=== PATIENT | male | born 1970 | race Caucasian/White ===

== ENCOUNTER 2018-07-12 21:35 | Emergency (ER) | payer OTHER ==
[~2018-07-12] VITALS: Ht 167.6 cm; Wt 88.5 kg
[2018-07-12] MEDS ORDERED: CIPROFLOXIN HC2.5 M1 OPHTHALMIC (22:19)
[2018-07-12 22:34] VITALS: BP 114/81
== END 2018-07-12 22:35 | disposition home or self-care (01) ==
LOC: M.ERS 21:35
DX: S05.01XA Injury of conjunctiva and corneal abrasion without foreign body, right eye, initial encounter (principal); X58.XXXA Exposure to other specified factors, initial encounter; Y93.89 Activity, other specified; Y92.89 Other specified places as the place of occurrence of the external cause; Y99.8 Other external cause status

== ENCOUNTER 2018-09-28 16:22 | Emergency (ER) | payer OTHER ==
[~2018-09-28] VITALS: Ht 170.2 cm; Wt 86.2 kg
[~2018-09-28 16:22] MED LIST: CIPROFLOXIN HC2.5 M1 OPHTHALMIC
[2018-09-28] MEDS ORDERED: LEVAQUIN 500 M500 M2 PO (18:04)
[2018-09-28 18:27] VITALS: BP 130/84
== END 2018-09-28 18:35 | disposition home or self-care (01) ==
LOC: M.ERS 16:22
DX: N50.812 Left testicular pain (principal)

== ENCOUNTER 2018-10-11 14:08 | Emergency (ER) | payer OTHER ==
[~2018-10-11] VITALS: Ht 172.7 cm; Wt 83.9 kg
[~2018-10-11 14:08] MED LIST changes: +LEVAQUIN 500 M500 M2 PO
[2018-10-11] MEDS ORDERED: DOXYCYCLINE 10100 MG PO (14:18)
[2018-10-11] MEDS ORDERED: IBUPROFEN 600600 M1 PO (14:19)
[2018-10-11] MEDS ORDERED: NORCO 5-325 TA1 EAC1 PO (14:48)
[2018-10-11 15:54] VITALS: BP 148/100
[2018-10-12] MEDS ORDERED: PREDNISONE50 MG PO (20:34)
[2018-10-12] MEDS ORDERED: PROAIR HFA8.5 GM INH (20:34)
== END 2018-10-11 15:54 | disposition home or self-care (01) ==
LOC: M.ERS 14:08
DX: M25.512 Pain in left shoulder (principal)

== ENCOUNTER 2018-10-12 18:34 | Emergency (ER) | payer OTHER ==
[~2018-10-12] VITALS: Ht 172.7 cm; Wt 83.9 kg
[~2018-10-12 18:34] MED LIST changes: +DOXYCYCLINE 10100 MG PO; +IBUPROFEN 600600 M1 PO; +NORCO 5-325 TA1 EAC1 PO
[2018-10-12 19:47] LABS: ABSOLUTE BASOPHILS 0.1 thou/uL (0.0-0.2); ABSOLUTE EOSINOPHILS 0.1 thou/uL (0.0-0.7); ABSOLUTE LYMPHOCYTES 1.8 thou/uL (0.8-5.3); ABSOLUTE MONOCYTES 0.6 thou/uL (0.0-1.2); ABSOLUTE NEUTROPHILS 3.7 thou/uL (1.6-8.1); BASOPHILS 0.9 %; EOSINOPHILS 2.1 %; HEMATOCRIT 43.8 % (42.0-52.0); HEMOGLOBIN 15.3 gm/dL (14.0-18.0); MCH 30.7 pg (26.0-34.0); MCHC 34.9 g/dL (28.0-37.0); MCV 88.1 fL (80.0-100.0); MONOCYTES 10.2 %; MPV 8.1 fl. (7.2-11.1); NUCLEATED RBCS 0 /100WBC; PLATELET COUNT* 298 thou/uL (150-400); POLYS 57.8 %; RBC 4.97 mil/uL (4.50-6.00); RDW-CV 12.3 % (10.5-14.5); WBC 6.3 thou/uL (4.0-11.0)
[2018-10-12 19:54] LABS: ANION GAP 9 mmol/L (7-16); BUN 10 mg/dL (7-18); CALCIUM 9.1 mg/dL (8.5-10.1); CHLORIDE 104 mmol/L (98-107); CO2 28 mmol/L (21-32); GLUCOSE 104 mg/dL (70-99); INR 1.1; POTASSIUM 3.8 mmol/L (3.5-5.1); PROTIME 11.4 Seconds (9.20-11.50); SODIUM 141 mmol/L (136-145)
[2018-10-12 20:06] LABS: ALBUMIN 3.9 g/dL (3.4-5.0); ALKALINE PHOSPHATASE 91 U/L (46-116); NT-PRO BRAIN NAT PEPTIDE 23 pg/mL (<300); SGOT 21 U/L (15-37); SGPT 39 U/L (30-65); TOTAL BILIRUBIN 0.4 mg/dL (<0.1-1.0); TOTAL PROTEIN 7.1 g/dL (6.4-8.2); TROPONIN-I LEVEL <0.06 ng/mL (<0.06)
[2018-10-12] MEDS ORDERED: PROAIR HFA8.5 GM INH (20:34)
[2018-10-12] MEDS ORDERED: PREDNISONE50 MG PO (20:34)
[2018-10-12 20:44] VITALS: BP 141/88
== END 2018-10-12 20:45 | disposition home or self-care (01) ==
LOC: M.ERS 18:34
PROVIDERS: Emergency Medicine
DX: R05 Cough (principal)

== ENCOUNTER 2018-10-19 02:28 | Emergency (ER) | payer OTHER ==
[~2018-10-19] VITALS: Ht 167.6 cm; Wt 83.9 kg
[~2018-10-19 02:28] MED LIST changes: +PREDNISONE50 MG PO; +PROAIR HFA8.5 GM INH
[2018-10-19] MEDS ORDERED: FLEXERIL PO (04:49)
[2018-10-19 05:00] VITALS: BP 146/94
== END 2018-10-19 05:05 | disposition home or self-care (01) ==
LOC: M.ERS 02:28
DX: M48.02 Spinal stenosis, cervical region (principal)

== ENCOUNTER 2018-10-21 20:16 | Emergency (ER) | payer OTHER ==
[~2018-10-21] VITALS: Ht 172.7 cm; Wt 74.8 kg
[~2018-10-21 20:16] MED LIST changes: +FLEXERIL PO
[2018-10-21 20:21] VITALS: BP 147/101
[2018-10-21] MEDS ORDERED: LYRICA 50 MG50 MG PO (20:41)
== END 2018-10-21 20:48 | disposition home or self-care (01) ==
LOC: M.ERS 20:16
DX: M54.12 Radiculopathy, cervical region (principal); Z98.890 Other specified postprocedural states

== ENCOUNTER 2019-07-23 14:11 | Emergency (ER) | payer OTHER ==
[~2019-07-23] VITALS: Ht 175.3 cm; Wt 71.7 kg
[~2019-07-23 14:11] MED LIST changes: +LYRICA 50 MG50 MG PO
[2019-07-23 15:01] LABS: ABSOLUTE BASOPHILS 0.1 thou/uL (0.0-0.2); ABSOLUTE EOSINOPHILS 0.3 thou/uL (0.0-0.7); ABSOLUTE LYMPHOCYTES 2.1 thou/uL (0.8-5.3); ABSOLUTE MONOCYTES 0.5 thou/uL (0.0-1.2); ABSOLUTE NEUTROPHILS 2.9 thou/uL (1.6-8.1); BASOPHILS 1.1 %; EOSINOPHILS 5.1 %; HEMATOCRIT 43.2 % (42.0-52.0); HEMOGLOBIN 15.3 gm/dL (14.0-18.0); LYMPHOCYTES 36.1 %; MCH 31.8 pg (26.0-34.0); MCHC 35.5 g/dL (28.0-37.0); MCV 89.5 fL (80.0-100.0); MONOCYTES 8.6 %; MPV 9.2 fl. (7.2-11.1); NUCLEATED RBCS 0 /100WBC; PLATELET COUNT* 208 thou/uL (150-400); POLYS 49.1 %; RBC 4.83 mil/uL (4.50-6.00); RDW-CV 13.3 % (10.5-14.5); WBC 5.9 thou/uL (4.0-11.0)
[2019-07-23 15:08] LABS: CALCIUM 8.6 mg/dL (8.5-10.1); POTASSIUM 3.8 mmol/L (3.5-5.1)
[2019-07-23 15:13] LABS: ALBUMIN 3.9 g/dL (3.4-5.0); TOTAL BILIRUBIN 0.8 mg/dL (<0.1-1.0)
[2019-07-23] MEDS ORDERED: ZANAFLEX4 MG PO (17:09)
[2019-07-23] MEDS ORDERED: NORCO 5-325 TA1 EAC1 PO (17:09)
[2019-07-23] MEDS ORDERED: NAPROSYN500 MG PO (17:09)
[2019-07-23 17:34] VITALS: BP 122/77
== END 2019-07-23 17:35 | disposition home or self-care (01) ==
LOC: M.ERS 14:11
PROVIDERS: Nurse Practitioner Family
DX: M54.2 Cervicalgia (principal); I10 Essential (primary) hypertension

== ENCOUNTER 2019-08-28 19:30 | Inpatient (IN) | payer OTHER ==
[~2019-08-28] VITALS: Ht 167.6 cm; Wt 69.6 kg
[~2019-08-28 19:30] MED LIST changes: +NAPROSYN500 MG PO; +ZANAFLEX4 MG PO
[2019-08-28 19:36] VITALS: BP 157/95
[2019-08-28] MEDS ORDERED: NEURONTIN100 MG PO (19:40)
[2019-08-28 19:52] LABS: ABSOLUTE BASOPHILS 0.1 thou/uL (0.0-0.2); ABSOLUTE EOSINOPHILS 0.3 thou/uL (0.0-0.7); ABSOLUTE LYMPHOCYTES 1.6 thou/uL (0.8-5.3); ABSOLUTE MONOCYTES 0.5 thou/uL (0.0-1.2); ABSOLUTE NEUTROPHILS 4.3 thou/uL (1.6-8.1); BASOPHILS 0.8 %; EOSINOPHILS 4.2 %; HEMATOCRIT 45.5 % (42.0-52.0); LYMPHOCYTES 24.1 %; MCH 31.7 pg (26.0-34.0); MCHC 35.1 g/dL (28.0-37.0); MCV 90.1 fL (80.0-100.0); MONOCYTES 8.1 %; MPV 8.3 fl. (7.2-11.1); NUCLEATED RBCS 0 /100WBC; PLATELET COUNT* 255 thou/uL (150-400); POLYS 62.8 %; RBC 5.05 mil/uL (4.50-6.00); RDW-CV 12.7 % (10.5-14.5); WBC 6.8 thou/uL (4.0-11.0)
[2019-08-28 20:01] LABS: CALCIUM 8.5 mg/dL (8.5-10.1); POTASSIUM 3.8 mmol/L (3.5-5.1); PROTIME 10.3 Seconds (9.20-11.50)
[2019-08-28 20:12] LABS: ALBUMIN 3.6 g/dL (3.4-5.0); TOTAL BILIRUBIN 0.8 mg/dL (<0.1-1.0); TOTAL PROTEIN 7.1 g/dL (6.4-8.2)
[2019-08-28 23:29] VITALS: BP 128/91
[2019-08-28 23:40] VITALS: BP 127/94
[2019-08-29 04:00] VITALS: BP 124/87
[2019-08-29 08:38] VITALS: BP 120/91
--- NOTE | 2019-08-29 10:23 | EKG ---
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 : 1970 Requested By: Mary Ann Camara Order Number: [id number] MD: Brian Stacy Measurements Intervals [place] Rate: 85 P: -2 TN: 134 QRS: 20 QRSD: 102 T: 24 QT: 372 QTc: 443 Interpretive Statements Sinus rhythm Borderline T abnormalities, inferior leads Baseline wander in lead(s) III,aVL,aVF No previous ECG available for comparison Electronically Signed On 08-29-2019 10:22:14 CDT by Brian Stacy [email or web address] <ELECTRONICALLY SIGNED> By: Mary Stacy MD, [facility] 08/29/192 33 33 Mary Stacy MD, [facility] /EPI
[2019-08-29 11:47] LABS: CHOLESTEROL 270 mg/dL (<200); HDL CHOLESTEROL 73 mg/dL (>40); LDL CHOLESTEROL 183 mg/dL (<100); TC:HDL 3.7 Ratio (Not establshd); TRIGLYCERIDE 74 mg/dL (<150); VLDL 15 mg/dL (<40)
[2019-08-29 12:14] LABS: SERUM ASSESSMENT Clear
[2019-08-29 12:20] VITALS: BP 116/90
[2019-08-29 12:47] LABS: CALCIUM 9.1 mg/dL (8.5-10.1); CREATININE 0.9 mg/dL (0.6-1.3)
[2019-08-29 16:03] VITALS: BP 107/77
[2019-08-29 20:00] VITALS: BP 127/87
[2019-08-30] VITALS: BP 118/91
[2019-08-30 04:00] VITALS: BP 121/93
[2019-08-30 05:56] LABS: HEMATOCRIT 40.2 % (42.0-52.0); MCH 31.6 pg (26.0-34.0); MCHC 34.9 g/dL (28.0-37.0); MCV 90.7 fL (80.0-100.0); MPV 8.4 fl. (7.2-11.1); RBC 4.43 mil/uL (4.50-6.00); RDW-CV 12.9 % (10.5-14.5); WBC 6.7 thou/uL (4.0-11.0)
[2019-08-30 06:14] LABS: ANION GAP 6 mmol/L (7-16); BUN 9 mg/dL (7-18); CALCIUM 8.2 mg/dL (8.5-10.1); CHLORIDE 102 mmol/L (98-107); CO2 30 mmol/L (21-32); CREATININE 0.9 mg/dL (0.6-1.3); GLUCOSE 115 mg/dL (70-99); MAGNESIUM 2.2 mg/dL (1.8-2.4); POTASSIUM 4.3 mmol/L (3.5-5.1); SODIUM 138 mmol/L (136-145); TROPONIN-I LEVEL <0.06 ng/mL (<0.06)
[2019-08-30 08:00] VITALS: BP 117/91
--- NOTE | 2019-08-30 11:19 | EKG ---
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
[2019-08-30 12:00] VITALS: BP 132/85
--- NOTE | 2019-08-30 14:18 | 2DMMODE ---
[place] [address] 2 D/M-MODE ECHOCARDIOGRAM Name: RADHAPABLO JR Room: [address] IN M.R.#: [id number] Admission: 08/28/19 Attend Phys: Laurie saldivar Sa Discharge: Date of : 72 Date of Service: 08/30/19 1417 Report #: [id number] THIS REPORT FOR: cc: FAM - No family physician/PCP FAM - No family physician/PCP Aden Ceballos MD [facility] ~ APPROVED REPORT Study performed: 08/30/2019 10:53:29 EXAM: Comprehensive 2D, Doppler, and color-flow Echocardiogram Patient Location: In-Patient BSA: 1.75 HR: 114 bpm BP: 117/91 mmHg Other Information Study Quality: Fair Technically limited study due to inability to position patient. Indications Chest Pain Pleural Effusion 2D Dimensions IVSd: 10.41 (7-11mm) LVOT Diam: 21.85 (18-24mm) LVDd: 41.80 mm PWd: 10.89 (7-11mm) Ascending Ao: 29.22 (22-36mm) LVDs: 33.34 (25-40mm) Aortic Root: 33.95 mm Volumes Left Atrial Volume (Systole) LA ESV Index: 15.10 mL/m2 Aortic Valve AoV Peak Edwin.: 0.96 m/s AO Peak Gr.: 3.71 mmHg LVOT Max P.37 mmHg AO Mean Gr.: 2.38 mmHg LVOT Mean P.42 mmHg LVOT Max V: 0.77 m/s AO V2 VTI: 15.31 cm LVOT Mean V: 0.56 m/s CHINO (VTI): 3.34 cm2 LVOT V1 VTI: 13.65 [place] [address] 2 D/M-MODE ECHOCARDIOGRAM Name: PABLO GARCIA JR Room: [address] IN ..#: [id number] Admission: 08/28/19 Attend Phys: Laurie saldivar Sa Discharge: Date of : 72 Date of Service: 08/30/19 1417 Report #: [id number] Mitral Valve E/A Ratio: 0.68 MV Decel. Time: 215.48 ms MV E Max Edwin.: 0.44 m/s MV PHT: 62.49 ms MVA (PHT): 3.52 cm2 TDI E/Lateral E': 4.89 E/Medial E': 3.14 Medial E' Edwin.: 0.14 m/s Lateral E' Edwin.: 0.09 m/s Pulmonary Valve PV Peak Edwin.: 0.81 m/s PV Peak Gr.: 2.60 mmHg Left Ventricle The left ventricle is normal size. There is normal LV segmental wall motion. There is normal left ventricular wall thickness. Left ventricular systolic function is borderline. LVEF is 50-55%. Grade I - abnormal relaxation pattern. Right Ventricle The right ventricle is normal size. The right ventricular systolic function is normal. Atria The left atrium size is normal. The right atrium size is normal. Aortic Valve The aortic valve is normal in structure. No aortic regurgitation is present. There is no aortic valvular stenosis. Mitral Valve The mitral valve is normal in structure. There is no mitral valve regurgitation noted. No evidence of mitral valve stenosis. Tricuspid Valve The tricuspid valve is normal in structure. There is no tricuspid valve regurgitation noted. Pulmonic Valve The pulmonary valve is normal in structure. There is no pulmonic valv[place] [address] 2 D/M-MODE ECHOCARDIOGRAM Name: PABLO GARCIA JR Room: [address] IN [facility]#: [id number] Admission: 08/28/19 Attend Phys: Laurie saldivar Sa Discharge: Date of : 72 Date of Service: 08/30/19 1417 Report #: [id number] Great Vessels The aortic root is normal in size. IVC is normal in size and collapses >50% with inspiration. Pericardium There is no pericardial effusion. Small left pleural effusion. <Conclusion> LVEF is 50-55%. Small left pleural effusion. <ELECTRONICALLY SIGNED> By: Aden Ceballos MD, [facility] 08/30/191416 16 16 Aden Ceballos MD, [facility] /INF
[2019-08-30 14:34] LABS: BF RBC 197629 /mm3; TOTAL CELL COUNT 2963 /mm3
[2019-08-30 14:57] LABS: BF LYMPHOCYTES 18 %; BF POLYS 82 %; BF TISSUE 22 /100 WBC; CLARITY TURBID; TOTAL VOLUME 30 ml
[2019-08-30 15:04] LABS: SOURCE PLEURAL FLUID
[2019-08-30 15:46] VITALS: BP 132/85
[2019-09-02 17:07] LABS: BODY FLUID PROTEIN 4.2 g/dL (())
[2019-09-02 18:13] LABS: SOURCE THORACENTESIS
--- NOTE | 2019-09-09 07:39 | CON ---
[address] [address] CONSULTATION Name: PABLO GARCIA JR Room: [address] IN M.R.#: [id number] Admission: 08/28/19 Attend Phys: Laurie Villafana Discharge: 08/30/19 Date of : 72 Report #: [id number] THIS REPORT FOR: //name// cc: NATHANAEL Love family physician/PCP NATHANAEL Love family physician/PCP ~ THIS REPORT FOR: //name// CC: NATHANAEL physician/PCP Laurie Lane DATE OF SERVICE: 08/28/2019 CARDIOLOGY CONSULTATION HISTORY OF PRESENT ILLNESS: I was asked by Dr. Goldman and Dr. Lane to see this 49-year-old white male in Cardiology consultation for evaluation and treatment of chest pain. This man underwent left thoracic outlet surgery 5 days ago at [facility] on [facility]. He had a thoracic outlet syndrome symptoms for several years before having the surgery. He came to the Emergency Room here at [place] last night because of worsening left chest pain. He says his pain had become a 10 on a scale of 10. He has now had fairly severe chest pain for almost 14 hours. He describes the pain as in the left upper chest and he describes it as a pressure. It is much worse with deep breathing or coughing. He described it as sharp to the ER doctor, but to me he described as a pressure. The pain does radiate to his back and down his back, he says. He does have shortness of breath with it, but no other associated symptoms. He does not have a family history of coronary artery disease. He does not have diabetes, high blood pressure and he does not smoke. He does have a history of high cholesterol; however. He says his high cholesterol is due to his diet. He eats a keto diet, which is high in protein and fat, he says. He does not eat carbohydrates, he says. On that diet, his total cholesterol was in the 230 range. He has not had chest pain before. He did not have chest pain as a manifestation of his thoracic outlet syndrome. He has never had exertional chest pain. The current chest pain is nonexertional. Additionally, the pain does radiate into his neck and a little bit down his arm. PAST MEDICAL HISTORY: Remarkable for a cyst on his left testicle in the past. He has also had left shoulder surgery, I believe rotator cuff surgery in the past. He has had right shoulder surgery as well and right knee surgery. His left rotator cuff has been done twice. He told the ER doctor that he had a history of hypertension, but he told me he did not. 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 MEDICATIONS: Include gabapentin 100 mg t.i.d. and tizanidine 4 mg t.i.d. p.r.n. pain as well as hydrocodone/acetaminophen 5/325 one q. 6 hours [place] [address] CONSULTATION Name: PABLO GARCIA JR [facility] [address] [id number] Admission: 08/28/19 Attend Phys: Laurie Villafana Discharge: 08/30/19 Date of : 72 Report #: [id number] ALLERGIES: He has no known allergies. FAMILY HISTORY: Negative for coronary artery disease. SOCIAL HISTORY: He does not smoke, drink, but does use marijuana. CARDIAC RISK FACTORS: He did smoke in the distant. REVIEW OF SYSTEMS: Positive for the chest pain previously mentioned arthritis, wearing glasses and otherwise is negative for some 45 different complaints in 14 different system categories, see review of system form for details and negatives in review of systems. PHYSICAL EXAMINATION: GENERAL: He presents as a well-developed, well-nourished white male in no acute distress. VITAL SIGNS: His pulse was 92, blood pressure 120/91. His blood pressure on admission was 157/95. Pulse 114, respirations 16, temperature 98.6. HEENT: His head was atraumatic. Eyes clear. NECK: Supple. There is no jugular venous distention or hepatojugular reflux. Thyroid is not enlarged. There is no adenopathy. SKIN: Warm and dry. Mucous membranes are moist. LUNGS: Clear to auscultation and percussion. HEART: Revealed normal first and second heart sound. There is soft S4. There is no S3. There are no murmurs, rubs, thrills, heaves or gallops. PMI is nondisplaced. Rhythm is regular and rate was approximately 100 when I examined him. ABDOMEN: Soft, flat and nontender. No palpable masses, no organomegaly. EXTREMITIES: Reveal no cyanosis, clubbing or edema. NEUROLOGIC: The patient mentated normally, talked normally, moved all extremities fairly normally, although his left arm was somewhat limited in motion due to his recent surgery. Note, he does have a surgical scar that still has stitches in the left lower neck above the shoulder and clavicle. LABORATORY DATA: Troponins were negative x 2. BNP was normal. A CT of the chest showed no evidence of a pulmonary embolus or aortic dissection. There was a CTA. There is left lower lobe atelectasis and a moderate left pleural effusion. He had a CT of his neck as well, it was done with contrast. There was a large mixed density fluid collection in the left supraclavicular fossa and left thoracic inlet consistent with postoperative hematoma/seroma. There was associated subcutaneous emphysema and moderate size left pleural effusion. IMPRESSION: 1. Chest pain. This is likely secondary to his postoperative state. 2. Status [place] [address] CONSULTATION Name: PABLO GARCIA JR Room: [address] IN [facility].#: [id number] Admission: 08/28/19 Attend Phys: Laurie Villafana Discharge: 08/30/19 Date of : 72 Report #: [id number] 3. Hypercholesterolemia. 4. Possible hypertension. RECOMMENDATION: From my point of view, I would get an echo only if he stays. He wants to be transferred to [facility] on the [place]. I would not stress test this man at this point and I would not do a cardiac catheterization. I believe his pain is all related to his postoperative state and he may have blood in his chest, I suspect which is likely causing some of the pleuritic component. Thank you very much for asking me to see the patient. If there are any questions, please feel free to contact me. <ELECTRONICALLY SIGNED> By: Mary Stacy MD, FACC 09/09/19 0739 0956 [id number]. Brian Stacy MD, [facility] /nt
== END 2019-08-30 15:55 | disposition home or self-care (01) | DRG 920 ==
LOC: M.ERS 19:30 → M.2W 22:42 → M.TBA-ER 22:42 → M.2W 23:36
PROVIDERS: Emergency Medicine; Internal Medicine; ADMIT Family Medicine; ATTEND Family Medicine
PROC: 0W9B3ZZ Drainage of Left Pleural Cavity, Percutaneous Approach (ICD-10-PCS; principal; 2019-08-30)
DX: M96.843 Postprocedural seroma of a musculoskeletal structure following other procedure (principal); J90 Pleural effusion, not elsewhere classified; Y83.8 Other surgical procedures as the cause of abnormal reaction of the patient, or of later complication, without mention of misadventure at the time of the procedure; I10 Essential (primary) hypertension; E78.00 Pure hypercholesterolemia, unspecified; F12.90 Cannabis use, unspecified, uncomplicated; Y92.89 Other specified places as the place of occurrence of the external cause; Z79.899 Other long term (current) drug therapy

== ENCOUNTER 2020-10-28 20:34 | Emergency (ER) | payer OTHER ==
[~2020-10-28] VITALS: Ht 167.6 cm; Wt 70.3 kg
[~2020-10-28 20:34] MED LIST changes: +NEURONTIN100 MG PO
[2020-10-28 21:50] LABS: ABSOLUTE BASOPHILS 0.1 thou/uL (0.0-0.2); ABSOLUTE EOSINOPHILS 0.3 thou/uL (0.0-0.7); ABSOLUTE LYMPHOCYTES 1.6 thou/uL (0.8-5.3); ABSOLUTE MONOCYTES 0.5 thou/uL (0.0-1.2); ABSOLUTE NEUTROPHILS 2.6 thou/uL (1.6-8.1); BASOPHILS 1.1 %; EOSINOPHILS 6.6 %; HEMATOCRIT 45.3 % (42.0-52.0); HEMOGLOBIN 15.4 gm/dL (14.0-18.0); LYMPHOCYTES 32.3 %; MCH 29.6 pg (26.0-34.0); MCHC 33.9 g/dL (28.0-37.0); MCV 87.2 fL (80.0-100.0); MONOCYTES 9.5 %; MPV 7.7 fl. (7.2-11.1); NUCLEATED RBCS 0 /100WBC; PLATELET COUNT* 271 thou/uL (150-400); POLYS 50.5 %; RDW-CV 13.4 % (10.5-14.5); WBC 5.1 thou/uL (4.0-11.0)
[2020-10-28 22:09] LABS: POTASSIUM 4.3 mmol/L (3.5-5.1)
[2020-10-28 22:13] LABS: ALBUMIN 3.8 g/dL (3.4-5.0); MAGNESIUM 2.4 mg/dL (1.8-2.4); TOTAL BILIRUBIN 0.4 mg/dL (<0.1-1.0); TOTAL PROTEIN 6.9 g/dL (6.4-8.2)
[2020-10-28 23:34] VITALS: BP 126/70
== END 2020-10-28 23:36 | disposition home or self-care (01) ==
LOC: M.ERS 20:34
PROVIDERS: Emergency Medicine
DX: R10.11 Right upper quadrant pain (principal); I10 Essential (primary) hypertension; E78.00 Pure hypercholesterolemia, unspecified